=== PATIENT | male | born 1995 | race Caucasian/White ===

== ENCOUNTER 2020-10-08 19:03 | Emergency (ER) | payer OTHER, SELFPAY ==
[2020-10-08 19:10] VITALS: BP 142/82; PULSE 83; RESP 17; TEMP 36.8; O2SAT 99; BMI 23.1
--- NOTE | 2020-10-08 19:52 | ED_ITS ---
HPI - Headache General Chief Complaint: Headache Stated Complaint: Bad Headache,Facial Numbness Time Seen by Provider: 10/08/20 19:52 Source: patient and family Mode of arrival: Ambulatory Limitations: no limitations History of Present Illness HPI Narrative: This is a 24-year-old male who comes emergency department with complaint of a headache for the past several weeks. Patient states headaches been fairly constant although it does come and go. Patient denies any other changes except for tonight while eating dinner he noticed some tingling of his left side of his face. He describes it as being just above the left brow, coming down the side of the orbit and his left upper cheek. He denies any fevers, he denies any vision changes. He denies any facial droop or difficulty with speech. No numbness, tingling or weakness in his other extremities. Patient denies any other symptoms. No chest pain, shortness of breath, no neck or back pain. No fevers. Patient denies any nausea or vomiting. No other GI or urinary symptoms. He denies any issues with balance or ambulation he states he is otherwise healthy. Denies other surgeries besides wisdom teeth extraction. No allergies to medications. He has tried Aleve with minimal improvement today. No tobacco, occasional alcohol he did have 1 beer this evening and no other illicit. Related Data Allergies Allergy/AdvReac Type Severity Reaction Status Date / Time No Known Drug Allergies Allergy Verified 10/08/20 19:22 Review of Systems Review of Systems ROS Unobtainable: All systems reviewed & are unremarkable except as noted in HPI and below Patient History Social History Smoking Status: Never smoker Smoking Status: Never smoker alcohol intake frequency: 0-2 drinks per day Alcohol type: beer Substance Use Type: does not use Exam Narrative Exam Narrative: GEN: well nourished, well appearing male, alert and oriented x 3, patient appears to be in mild distress. HEENT: Atraumatic, pupils are equal round reactive to light, extraocular movements are intact, nares are clear, TMs are clear with no fluid, there is no conjunctival pallor. Throat is clear without any exudates, erythema, tonsillar enlargement or uvular deviation, facial droop, no rash or other skin changes appreciated HEART: Regular rate and rhythm without murmur, clicks, rubs. LUNGS:Lungs clear to auscultation, no wheezes, rales, crackles, chest moves symmetrically ABD:bowel sounds normal, soft, non-tender, no guarding, rebound, rigidity, no masses noted, no hepatosplenomegaly MSCL: Non-tender, no muscle atrophy, muscles strength 5/5 upper and lower extremities, full range of motion, normal gait NEURO:CN 2-12 intact, sensation normal, reflexes 2/4 upper and lower extremities. finger nose finger test normal, heel paz test normal SKIN: No erythema, no rash, no other changes Initial Vital Signs Initial Vital Signs: Vital Signs Temperature 98.3 F 10/08/20 19:10 Pulse Rate 83 10/08/20 19:10 Respiratory Rate 17 10/08/20 19:10 Blood Pressure 142/82 H 10/08/20 19:10 Pulse Oximetry 99 10/08/20 19:10 Course Orders Ordered: ED Orders 10/08/20 19:25 Complete Blood Count AUTO DIFF Stat Comprehensive Metabolic Panel Stat Magnesium Stat 10/08/20 20:21 CT head/brain wo con Stat Vital Signs Vital signs: Vital Signs - 8 hr 10/08/20 19:10 Temperature 98.3 F Pulse Rate 83 Respiratory Rate 17 Blood Pressure 142/82 H Pulse Oximetry 99 MDM - Headache Lab Data Attestation: I reviewed the patient's lab results. Result diagrams: 10/08/20 19:25 10/08/20 19:25 Labs: Lab Results 10/08/20 10/08/20 10/08/20 Range/Units 19:25 19:25 19:25 WBC 6.6 (4.5-11.0) X10^3/uL RBC 5.12 (4.5-5.9) X10^6/uL Hgb 15.0 (13.5-17.5) g/dL Hct 44.3 (41-53) % MCV 86.4 (80-100) fL MCH 29.3 (26-34) PG MCHC 33.9 (30-36) % RDW 12.3 (11.6-14.8) % Plt Count 231 (150-400) X10^3/uL Neut % (Auto) 60.0 (50-75) % Lymph % (Auto) 33.4 (25-40) % [place] % (Auto) 5.3 (3-14) % Eos % (Auto) 1.0 L (2-4) % Baso % (Auto) 0.3 (0-2) % Neut # (Auto) 4000 (8550-5404) /uL Lymph # (Auto) 2200 (1309-9235) /uL [place] # (Auto) 400 (0-900) /uL Eos # (Auto) 100 (0-450) /uL Baso # (Auto) 0 (0-100) /uL Sodium 138 (137-145) mmol/L Potassium 3.9 (3.4-5.1) mmol/L Chloride 101 (98-107) mmol/L Carbon Dioxide 31 (22-32) mmol/L BUN 14 (9-20) mg/dL Creatinine 0.91 (0.66-1.25) mg/dL Estimated GFR > 60.0 (>60) mL/min BUN/Creatinine Ratio 15.4 (6-22) Glucose 126 H (70-100) mg/dL Calcium 9.2 (8.4-10.2) mg/dL Magnesium 1.9 (1.6-2.3) mg/dL Total Bilirubin 0.6 (0.2-1.3) mg/dL AST 47 (17-59) IU/L ALT 17 (<50) IU/L Alkaline Phosphatase 66 (38-126) U/L Total Protein 7.8 (6.3-8.2) g/dL Albumin 4.8 (3.5-5.0) g/dL Globulin 3.0 (1.7-4.1) g/dL Albumin/Globulin Ratio 1.6 (1.0-2.8) Imaging Data CT scan - head: Radiologist's Impression: [address] [id number] Scan ReportSigned Patient: Eduardo Lopez JMR#: [id number]: 1995Acct:[id number]/Sex: 24 / MDate of Service: 10/08/20Loc: [facility] Number: [id number] Procedure: CT head/brain wo con Ordering Provider: Gardenia Mcclelland D.O. PROCEDURE: CT HEAD/BRAIN WO CON INDICATIONS: headaches for several weeks, paresthesias, L forehead/cheek TECHNIQUE: Noncontrast 4.5 mm thick angled axial sections acquired from the foramen magnum to the vertex, with coronal and sagittal reformats. For radiation dose reduction, the following was used: automated exposure control, adjustment of mA and/or kV according to patient size. COMPARISON: None. FINDINGS: Image quality: Excellent. CSF spaces: Basal cisterns are patent. No extra-axial fluid collections. Ventricles are normal in size and shape. Brain: No midline shift. No intracranial masses or hemorrhage. Wagoner-white matter interface is normal. Skull and face: Calvarium and visualized facial bones are intact, without suspicious lesions. Sinuses: Visualized sinuses and mastoids are clear. IMPRESSION: Negative noncontrast head CT, without a cause of headache identified. No masses or mass effect can be seen. Dictated by: Kareem Nunes M.D. on 10/08/2020 at 19:36 Approved by: Kareem Nunes M.D. on 10/08/2020 at 19:37 [facility] Narrative Medical decision making narrative: Is a 24-year-old male comes in with complaint of headache for several weeks. Patient states no new acute changes. He does not have any red flag symptoms other than some paresthesias or tingling developing on the left upper forehead and cheek. Patient has not developed any rashes, no skin changes. He has not had any facial droop. He does not have any other neurologic changes. My suspicion for stroke or other neurologic event is low. Initial head CT is negative for mass, bleed or other changes. Discussed with patient he does need follow-up. If he has any other new neurologic changes he should return. We did discuss that he can sometimes have symptoms like this proceeding any shingles or Bourne's palsy and he should be the look out for the symptoms although this is not necessarily the cause difficulty today. Discharge Plan Departure Patient Disposition: Home Clinical Impression: Headache, Facial paresthesia Instructions: DI for Headache Activity Restrictions/Additional Instructions: Follow-up with your physician in the next week for recheck. Paresthesias or tingling of the face can sometimes proceed Shingles or Bourne's palsy, if you develop a rash or facial droop return for evaluation and treatment as these have different pathways for treatment. Return to the ER for fevers, rapidly worsening headaches, sudden vision changes, facial droop, difficulty with speech passing out, persistent vomiting, new numbness tingling or weakness of her other extremities or other new or concerning symptoms.
--- NOTE | 2020-10-08 20:21 | DI.CT.S_ITS ---
PROCEDURE: CT HEAD/BRAIN WO CON INDICATIONS: headaches for several weeks, paresthesias, L forehead/cheek TECHNIQUE: Noncontrast 4.5 mm thick angled axial sections acquired from the foramen magnum to the vertex, with coronal and sagittal reformats. For radiation dose reduction, the following was used: automated exposure control, adjustment of mA and/or kV according to patient size. COMPARISON: None. FINDINGS: Image quality: Excellent. CSF spaces: Basal cisterns are patent. No extra-axial fluid collections. Ventricles are normal in size and shape. Brain: No midline shift. No intracranial masses or hemorrhage. Wagoner-white matter interface is normal. Skull and face: Calvarium and visualized facial bones are intact, without suspicious lesions. Sinuses: Visualized sinuses and mastoids are clear. IMPRESSION: Negative noncontrast head CT, without a cause of headache identified. No masses or mass effect can be seen. Dictated by: Kareem Nunes M.D. on 10/08/2020 at 19:36 Approved by: Kareem Nunes M.D. on 10/08/2020 at 19:37
[2020-10-08 20:30] LABS: Add Manual Diff / Slide Review NO; Basophils Absolute Auto 0 /uL (0-100); Basophils Percent Auto 0.3 % (0-2); Eosinophils Absolute Auto 100 /uL (0-450); Hematocrit 44.3 % (41-53); Lymphocytes Absolute Auto 2200 /uL (1100-4500); Lymphocytes Percent Auto 33.4 % (25-40); Mean Corpuscular HGB Conc 33.9 % (30-36); Mean Corpuscular Hemoglobin 29.3 PG (26-34); Mean Corpuscular Volume 86.4 fL (80-100); Monocytes Absolute Auto 400 /uL (0-900); Monocytes Percent Auto 5.3 % (3-14); Neutrophils Absolute Auto 4000 /uL (1500-7000); Platelet Count 231 X10^3/uL (150-400); Red Blood Cell Count 5.12 X10^6/uL (4.5-5.9); Red Cell Distribution Width 12.3 % (11.6-14.8); White Blood Cell Count 6.6 X10^3/uL (4.5-11.0)
[2020-10-08 20:34] LABS: Magnesium 1.9 mg/dL (1.6-2.3)
[2020-10-08 20:36] LABS: Alanine Aminotransferase 17 IU/L (<50); Albumin 4.8 g/dL (3.5-5.0); Albumin Globulin Ratio 1.6 (1.0-2.8); Alkaline Phosphatase 66 U/L (38-126); Aspartate Aminotransferase 47 IU/L (17-59); BUN Creatinine Ratio 15.4 (6-22); Bilirubin Total 0.6 mg/dL (0.2-1.3); Blood Urea Nitrogen 14 mg/dL (9-20); Calcium 9.2 mg/dL (8.4-10.2); Carbon Dioxide 31 mmol/L (22-32); Chloride 101 mmol/L (98-107); Estimated Glomerular Filt Rate > 60.0 mL/min (>60); Glucose 126 mg/dL (70-100); HEMOLYSIS 17 (0-50); Potassium 3.9 mmol/L (3.4-5.1); Sodium 138 mmol/L (137-145); Total Protein 7.8 g/dL (6.3-8.2)
[2020-10-08 20:52] VITALS: BP 142/82; PULSE 80; RESP 16; O2SAT 99
== END 2020-10-08 20:55 | disposition home or self-care (01) ==
PROVIDERS: Emergency Provider Emergency Medicine
DX: R51.9 Headache, unspecified (principal); R20.2 Paresthesia of skin
CPT/HCPCS: 36415; 70450; 80053; 83735; 85025; 99284